=== PATIENT | male | born 1975 | race Caucasian/White ===

== ENCOUNTER → 2016-12-23 | Outpatient (CLI) | payer MEDICAID ==
[2016-12-23 09:03] LABS: Hemoglobin A1C 7.4 % (4.2-6.1)
== END | disposition home or self-care (01) ==
LOC: LABWHC1 08:05
PROVIDERS: ATTEND Internal Medicine Geriatric Medicine
DX: E11.9 Type 2 diabetes mellitus without complications (principal)
CPT/HCPCS: 36415; 83036

== ENCOUNTER 2017-02-22 23:05 | Emergency (ER) | payer MEDICAID ==
[2017-02-22 23:10] VITALS: RESP 18
[2017-02-22] MEDS ORDERED: SODIUM CHLORIDE 0.9% 1,000 ML IV ONE (23:25)
--- NOTE | 2017-02-22 23:28 | ED ---
Abdominal Pain HPI - General Chief Complaint: Abdominal Pain Stated Complaint: Side pain Time Seen by Provider: 02/22/17 23:12 Source: patient, RN notes reviewed Mode of arrival: ambulatory Limitations: no limitations - History of Present Illness Initial Comments: Patient is a 41-year-old male presents to the emergency room for evaluation of right flank pain. Patient states he has been having pain for the past 2 days. Patient states the pain has been worsening throughout the day. Patient states he went to bed and could not sleep so decided to come here to be evaluated. Patient states the pain is not any worse with movement. Patient states he is having 4 out of 10 constant pain. Patient denies nausea or vomiting. Patient denies any pain or burning during urination, trouble urinating or blood in urine. Patient denies any history of kidney stones. Patient denies history of abdominal surgeries. Patient denies constipation or diarrhea. Patient denies any discoloration of stools. Patient fevers or chills. Patient denies chest pain or shortness of breath. Patient states about a week and a half ago he was diagnosed with bronchitis. Patient states he was on prednisone for a few days. Patient states symptoms have improved since then. Patient denies any productive cough or shortness of breath. - Related Data Home Medications Medication Instructions Recorded Confirmed Albuterol Inhaler [Ventolin Hfa 1 - 2 puff INHALATION RT-Q6H PRN 02/22/17 Inhaler] sitaGLIPtin PHOS/metFORMIN HCL 1 tab PO BID 02/22/17 02/22/17 [Janumet 50-1,000 mg Tablet] Previous Rx's Medication Instructions Recorded Ibuprofen [Motrin] 600 mg PO Q6HR PRN #20 tab 02/23/17 Levofloxacin [Levaquin] 500 mg PO DAILY 7 Days 02/23/17 Allergies Allergy/AdvReac Type Severity Reaction Status Date / Time No Known Allergies Allergy Verified 02/22/17 23:20 Review of Systems ROS Statement: Those systems with pertinent positive or pertinent negative responses have been documented in the HPI. ROS Other: All systems not noted in ROS Statement are negative. Past Medical History Past Medical History: Asthma, Diabetes Mellitus History of Any Multi-Drug Resistant Organisms: None Reported Past Surgical History: Tonsillectomy Past Psychological History: No Psychological Hx Reported Smoking Status: Never smoker Past Alcohol Use History: Occasional Past Drug Use History: None Reported General Exam - General Exam Comments Initial Comments: Sitting in exam room, in no acute distress. Limitations: no limitations General appearance: alert, in no apparent distress Head exam: Present: atraumatic, normocephalic, normal inspection Eye exam: Present: normal appearance ENT exam: Present: normal exam Neck exam: Present: normal inspection Respiratory exam: Present: normal lung sounds bilaterally. Absent: respiratory distress Cardiovascular Exam: Present: regular rate, normal rhythm, normal heart sounds GI/Abdominal exam: Present: soft, normal bowel sounds. Absent: distended, tenderness, guarding, rebound, rigid Extremities exam: Present: normal inspection Back exam: Present: normal inspection. Absent: CVA tenderness (R), CVA tenderness (L) Neurological exam: Present: alert, oriented X3, CN II-XII intact, normal gait Psychiatric exam: Present: normal affect, normal mood Skin exam: Present: warm, dry, intact, normal color. Absent: rash Course Vital Signs 02/22/17 02/23/17 02/23/17 23:08 01:39 02:07 Temperature 97.8 F 97.1 F L Pulse Rate 82 74 80 Respiratory 18 18 18 Rate Blood Pressure 144/86 166/100 151/95 O2 Sat by Pulse 96 100 98 Oximetry Medical Decision Making - Medical Decision Making Patient is a 41-year-old male presents to the emergency room for evaluation of right-sided flank pain. No CVA tenderness. No abdominal tenderness. Urinalysis suspicious for a possible urinary tract infection. Urine culture pending. CT abdomen/pelvis ordered to rule out kidney stone. Possible pneumonitis found in right lower lobe. Pneumonitis could possibly be the reason patient's source of pain. Will place patient on antibiotics for pneumonia and urinary tract infection. Plan discussed with patient. Advised patient to be reevaluated by his primary care provider in 24-48 hours. Patient states he understands everything that was discussed with him. Return parameters discussed. Case discussed with Dr. Christopher. - Lab Data Result diagrams: 02/22/17 23:46 02/22/17 23:43 Lab Results 02/22/17 02/22/17 02/22/17 Range/Units 23:08 23:43 23:46 WBC 7.3 (3.8-10.6) k/uL RBC 5.67 (4.30-5.90) m/uL Hgb 16.4 (13.0-17.5) gm/dL Hct 48.1 (39.0-53.0) % MCV 84.8 (80.0-100.0) fL MCH 28.9 (25.0-35.0) pg MCHC 34.1 (31.0-37.0) g/dL RDW 13.0 (11.5-15.5) % Plt Count 186 (150-450) k/uL Neutrophils % 57 % Lymphocytes % 24 % Monocytes % 8 % Eosinophils % 7 % Basophils % 1 % Neutrophils # 4.1 (1.3-7.7) k/uL Lymphocytes # 1.8 (1.0-4.8) k/uL Monocytes # 0.6 (0-1.0) k/uL Eosinophils # 0.5 (0-0.7) k/uL Basophils # 0.1 (0-0.2) k/uL Sodium 138 (137-145) mmol/L Potassium 4.7 (3.5-5.1) mmol/L Chloride 102 (98-107) mmol/L Carbon Dioxide 26 (22-30) mmol/L Anion Gap 10 mmol/L BUN 23 H (9-20) mg/dL Creatinine 1.00 (0.66-1.25) mg/dL Est GFR (MDRD) Af Amer >60 (>60 ml/min/1.73 sqM) Est GFR (MDRD) Non-Af >60 (>60 ml/min/1.73 sqM) Glucose 249 H (74-99) mg/dL Calcium 9.5 (8.4-10.2) mg/dL Total Bilirubin 0.9 (0.2-1.3) mg/dL AST 30 (17-59) U/L ALT 62 (21-72) U/L Alkaline Phosphatase 101 (38-126) U/L Total Protein 7.3 (6.3-8.2) g/dL Albumin 3.9 (3.5-5.0) g/dL Amylase 57 (30-110) U/L Lipase 287 (23-300) U/L Urine Color Yellow Urine Appearance Cloudy (Clear) Urine pH 5.5 (5.0-8.0) Ur Specific [place] 1.022 (1.001-1.035) Urine Protein Trace H (Negative) Urine Glucose (UA) 1+ H (Negative) Urine Ketones Negative (Negative) Urine Blood Negative (Negative) Urine Nitrite Negative (Negative) Urine Bilirubin Negative (Negative) Urine Urobilinogen <2.0 (<2.0) mg/dL Ur Leukocyte Esterase Large H (Negative) Urine RBC 2 (0-5) /hpf Urine WBC 8 H (0-5) /hpf Ur Squamous Epith Cells 2 (0-4) /hpf Amorphous Sediment Rare H (None) /hpf Urine Bacteria Rare H (None) /hpf Hyaline Casts 6 H (0-2) /lpf Urine Mucus Few H (None) /hpf - Radiology Data Radiology results: report reviewed, image reviewed Disposition Clinical Impression: Pneumonia, UTI (urinary tract infection) Disposition: HOME SELF-CARE Condition: Good Instructions: Community Acquired Pneumonia (ED) Additional Instructions: Take antibiotics as directed. Please follow up with primary care provider in 1- 2 days for reevaluation. If any new symptom arises or symptoms worsen, return to ER as soon as possible. Prescriptions: Ibuprofen [Motrin] 600 mg PO Q6HR PRN #20 tab PRN Reason: Pain Levofloxacin [Levaquin] 500 mg PO DAILY 7 Days Referrals: Salvador Melo MD [Primary Care Provider] - 1-2 days Time of Disposition: 01:48
[2017-02-22 23:53] LABS: Basophils # (A) 0.1 k/uL (0-0.2); Basophils % (A) 1 %; CH 29.6; CHCM 35.1; Eosinophils # (A) 0.5 k/uL (0-0.7); Eosinophils % (A) 7 %; HCT 48.1 % (39.0-53.0); HDW 2.94; HGB 16.4 gm/dL (13.0-17.5); Luc # (Auto) 0.24; Luc % (Auto) 3; Lymphocytes # (A) 1.8 k/uL (1.0-4.8); Lymphocytes % (A) 24 %; MCH 28.9 pg (25.0-35.0); MCHC 34.1 g/dL (31.0-37.0); MCV 84.8 fL (80.0-100.0); Monocytes # (A) 0.6 k/uL (0-1.0); Monocytes % (A) 8 %; Neutrophils # (A) 4.1 k/uL (1.3-7.7); Neutrophils % (A) 57 %; RBC 5.67 m/uL (4.30-5.90); WBC 7.3 k/uL (3.8-10.6); WBC (Perox) 6.91
[2017-02-22 23:54] LABS: Amorphous Sediment,Urine Rare /hpf; Appearance,Urine Cloudy (Clear); Bacteria,Urine Rare /hpf; Bilirubin,Urine Negative (Negative); Glucose,Urine (UA) 1+ (Negative); Ketones,Urine Negative (Negative); Leukocyte Esterase,Urine Large (Negative); Mucus,Urine Few /hpf; Nitrite,Urine Negative (Negative); PH, Urine 5.5 (5.0-8.0); Particle Count 8322; Protein,Urine Trace (Negative); RBC,Urine 2 /hpf (0-5); Specific Gravity,Urine 1.022 (1.001-1.035); Squamous Epithelial Cell,Urine 2 /hpf (0-4); UA Billing (MACRO vs. MICRO) MICRO; Urobilinogen,Urine <2.0 mg/dL (<2.0); WBC,Urine 8 /hpf (0-5)
[2017-02-23 00:03] LABS: ALT 62 U/L (21-72); AST 30 U/L (17-59); Alkaline Phosphatase 101 U/L (38-126); Amylase 57 U/L (30-110); Anion Gap 10 mmol/L; Blood Urea Nitrogen 23 mg/dL (9-20); Calcium 9.5 mg/dL (8.4-10.2); Carbon Dioxide 26 mmol/L (22-30); Chloride 102 mmol/L (98-107); Glucose 249 mg/dL (74-99); Non-African American GFR(MDRD) >60 (>60 ml/min/1.73 sqM); Potassium 4.7 mmol/L (3.5-5.1); Sodium 138 mmol/L (137-145); Total Bilirubin 0.9 mg/dL (0.2-1.3); Total Protein 7.3 g/dL (6.3-8.2)
--- NOTE | 2017-02-23 00:32 | XR ---
EXAM: XR Abdomen. CLINICAL HISTORY: Pain. TECHNIQUE: Upright frontal view of the abdomen/pelvis. A total of 2 images were obtained. COMPARISON: XR dated 06/18/2016. FINDINGS: Intraperitoneal space: No evidence of free intraperitoneal air. Gastrointestinal tract: Nonspecific bowel gas pattern. No significant dilation of bowel loops to suggest bowel obstruction. Bones/joints: Unremarkable osseous structures. IMPRESSION: Nonspecific bowel gas pattern without radiographic evidence of bowel obstruction or free air.
[2017-02-23] MEDS ORDERED: ACETAMINOPHEN IV (For NPO) 1,000 MG in EMPTY BAG 1 BAG IVPB STA (00:40)
--- NOTE | 2017-02-23 01:41 | CT ---
EXAM: CT Abdomen and Pelvis Without Intravenous Contrast CLINICAL HISTORY: Right upper quadrant pain. TECHNIQUE: Axial computed tomography images of the abdomen and pelvis without intravenous contrast. Coronal and sagittal reformatted images were created and reviewed. DOSE INFORMATION: CTDI is 9.90 mGy and DLP is 527.10 mGy-cm. This CT exam was performed using one or more of the following dose reduction techniques: automated exposure control, adjustment of the mA and/or kV according to patient size, and/or use of iterative reconstruction technique. COMPARISON: No relevant prior studies available. FINDINGS: Lower thorax: Mild opacities in the RLL at the lung base. Visualized lower chest otherwise unremarkable. ABDOMEN: Liver: Fatty infiltration of the liver. Liver measures 18.8 cm in craniocaudal dimension. Gallbladder and bile ducts: Contracted gallbladder. No radiopaque gallstones. No biliary ductal dilation. Pancreas: No ductal dilation. No adjacent inflammatory changes. Spleen: Unremarkable. No splenomegaly. Adrenals: Unremarkable. No mass. Kidneys and ureters: Unremarkable. No obstructing calculi. No hydronephrosis. Stomach and bowel: Colonic diverticula without evidence of acute diverticulitis. No bowel obstruction. No significant bowel wall thickening. Appendix: No findings to suggest acute appendicitis. PELVIS: Bladder: Unremarkable. No calculi or wall thickening. Reproductive: Unremarkable as visualized. ABDOMEN and PELVIS: Intraperitoneal space: No free air. No significant fluid collection. Bones/joints: Mild degenerative disc disease with small calcified disc bulge at L5-S1. No acute fracture. Soft tissues: Tiny fat-containing umbilical hernia. No associated inflammatory changes. Vasculature: Unremarkable. No aortic aneurysm. Lymph nodes: Unremarkable. No enlarged lymph nodes. IMPRESSION: 1. Mild opacity in the right lower lobe at the lung base. Findings may represent mild bronchiolitis/pneumonitis versus atelectasis. Correlate clinically. 2. Mildly enlarged fatty liver. 3. Colonic diverticula without evidence of acute diverticulitis.
[2017-02-23] MEDS ORDERED: IBUPROFEN 600 MG TAB PO STA (01:56)
[2017-02-23 02:07] VITALS: BP 151/95; PULSE 80; TEMP 97.1
== END 2017-02-23 02:07 | disposition home or self-care (01) ==
LOC: EC 23:05
DX: N39.0 Urinary tract infection, site not specified (principal); J18.9 Pneumonia, unspecified organism; E11.9 Type 2 diabetes mellitus without complications; Z79.4 Long term (current) use of insulin
CPT/HCPCS: 99284; 96374; 96361; 36415; 80053; 82150; 83690; 85025; 81001; 87491; 87591; 87086; 74000; 74176; J0131

== ENCOUNTER → 2020-09-05 | Outpatient (CLI) | payer MEDICAID | END | disposition home or self-care (01) | LOC: LABWHC1 13:08 | PROVIDERS: ATTEND Nurse Practitioner Gerontology | DX: Z20.828 Contact with and (suspected) exposure to other viral communicable diseases (principal) | CPT/HCPCS: U0003; C9803 ==

== ENCOUNTER → 2021-10-09 | Outpatient (CLI) | payer MEDICAID ==
[2021-10-09 14:25] LABS: Basophils # (A) 0.01 X 10*3/uL (0.00-0.10); Basophils % (A) 0.1 %; Eosinophils # (A) 0.21 X 10*3/uL (0.04-0.35); Eosinophils % (A) 2.6 %; HCT 45.2 % (39.6-50.0); HGB 15.3 g/dL (13.0-17.0); Lymphocytes # (A) 1.85 X 10*3/uL (0.90-5.00); Lymphocytes % (A) 23.3 %; MCHC 33.8 g/dL (32.0-37.0); MCV 85.6 fL (80.0-97.0); Mean Platelet Volume 11.8 fL (9.5-12.2); Monocytes # (A) 0.73 X 10*3/uL (0.20-1.00); Monocytes % (A) 9.2 %; Neutrophils # (A) 5.13 X 10*3/uL (1.80-7.70); Neutrophils % (A) 64.5 %; Platelet Count 238 X 10*3/uL (140-440); RBC 5.28 X 10*6/uL (4.40-5.60); RDW 12.3 % (11.5-14.5); WBC 7.95 X 10*3/uL (4.50-10.00)
[2021-10-09 16:11] LABS: ALT 25 U/L (10-49); AST 15 U/L (14-35); African American GFR (CKD) 109.5 (60.0-200.0); Albumin 4.3 g/dL (3.8-4.9); Albumin/Globulin Ratio 1.62 (1.60-3.17); Alkaline Phosphatase 96 U/L (41-126); BUN/Creat Ratio 22.43 Ratio (12.00-20.00); Blood Urea Nitrogen 21.4 mg/dL (9.0-27.0); Calcium 9.1 mg/dL (8.7-10.3); Carbon Dioxide 23.4 mmol/L (20.0-27.5); Chloride 99 mmol/L (96-109); Chol/HDL Ratio 3.71 Ratio; Globulin 2.6 g/dL (1.6-3.3); Glucose 259 mg/dL (70-110); Non-African American GFR(CKD) 94.5 (60.0-200.0); Potassium 4.7 mmol/L (3.5-5.5); Sodium 136 mmol/L (135-145); Total Protein 6.9 g/dL (6.2-8.2); VLDL Calculation 13.64 mg/dL (5.00-40.00)
== END | disposition home or self-care (01) ==
LOC: LABWHC1 10:12
PROVIDERS: ATTEND Nurse Practitioner Gerontology
DX: E11.65 Type 2 diabetes mellitus with hyperglycemia (principal); E78.2 Mixed hyperlipidemia
CPT/HCPCS: 36415; 80053; 80061; 83036; 84443; 85025

== ENCOUNTER → 2022-01-09 | Outpatient (CLI) | payer MEDICAID ==
[2022-01-09 12:00] LABS: African American GFR (CKD) 103.4 (60.0-200.0); Albumin 4.3 g/dL (3.8-4.9); Albumin/Globulin Ratio 1.54 (1.60-3.17); Anion Gap 10.7 mmol/L (10.00-18.00); BUN/Creat Ratio 21.4 Ratio (12.00-20.00); Blood Urea Nitrogen 21.4 mg/dL (9.0-27.0); Calcium 9.4 mg/dL (8.7-10.3); Carbon Dioxide 24.3 mmol/L (20.0-27.5); Globulin 2.8 g/dL (1.6-3.3); Non-African American GFR(CKD) 89.2 (60.0-200.0); Potassium 4.3 mmol/L (3.5-5.5); Total Bilirubin 0.4 mg/dL (0.30-1.20); Total Protein 7.1 g/dL (6.2-8.2)
== END | disposition home or self-care (01) ==
LOC: LABWHC1 07:25
PROVIDERS: ATTEND Internal Medicine Geriatric Medicine
DX: E11.65 Type 2 diabetes mellitus with hyperglycemia (principal)
CPT/HCPCS: 36415; 80053; 83036

== ENCOUNTER → 2022-04-15 | Outpatient (CLI) | payer MEDICAID ==
[2022-04-15 15:44] LABS: ALT 17 U/L (10-49); AST 21 U/L (14-35); African American GFR (CKD) 92.2 (60.0-200.0); Albumin 4.4 g/dL (3.8-4.9); Albumin/Globulin Ratio 1.47 (1.60-3.17); Alkaline Phosphatase 64 U/L (41-126); BUN/Creat Ratio 22.73 Ratio (12.00-20.00); Calcium 9.3 mg/dL (8.7-10.3); Carbon Dioxide 27.4 mmol/L (20.0-27.5); Chloride 101 mmol/L (96-109); Chol/HDL Ratio 3.35 Ratio; Glucose 105 mg/dL (70-110); LDL Cholesterol,Calculated 80.4 mg/dL (0.0-131.0); Non-African American GFR(CKD) 79.5 (60.0-200.0); Potassium 4.2 mmol/L (3.5-5.5); Sodium 145 mmol/L (135-145); Total Protein 7.4 g/dL (6.2-8.2); VLDL Calculation 14.98 mg/dL (5.00-40.00)
[2022-04-15 15:45] LABS: Basophils # (A) 0.01 X 10*3/uL (0.00-0.10); Basophils % (A) 0.1 %; Eosinophils # (A) 0.25 X 10*3/uL (0.04-0.35); Eosinophils % (A) 3.5 %; HCT 49.7 % (39.6-50.0); HGB 15.8 g/dL (13.0-17.0); Immature Grans, Automated 0.3 %; Lymphocytes # (A) 1.81 X 10*3/uL (0.90-5.00); Lymphocytes % (A) 25.4 %; MCH 28.7 pg (27.0-32.0); MCHC 31.8 g/dL (32.0-37.0); MCV 90.4 fL (80.0-97.0); Mean Platelet Volume 11.1 fL (9.5-12.2); Monocytes # (A) 0.64 X 10*3/uL (0.20-1.00); NRBC Per 100 WBC 0 /100 WBCS (0.0-0.0); Neutrophils # (A) 4.39 X 10*3/uL (1.80-7.70); Neutrophils % (A) 61.7 %; Platelet Count 230 X 10*3/uL (140-440); RDW 13.2 % (11.5-14.5); WBC 7.12 X 10*3/uL (4.50-10.00)
== END | disposition home or self-care (01) ==
LOC: LABWHC1 07:38
PROVIDERS: ATTEND Nurse Practitioner Gerontology
DX: E11.65 Type 2 diabetes mellitus with hyperglycemia (principal); E78.2 Mixed hyperlipidemia; F41.9 Anxiety disorder, unspecified
CPT/HCPCS: 36415; 80053; 80061; 83036; 84443; 85025

== ENCOUNTER → 2022-08-31 | Outpatient (CLI) | payer MEDICAID ==
[2022-08-31 23:10] LABS: ALT 22 U/L (10-49); AST 32 U/L (14-35); Albumin 4.2 g/dL (3.8-4.9); Albumin/Globulin Ratio 1.45 (1.60-3.17); Alkaline Phosphatase 59 U/L (41-126); BUN/Creat Ratio 20.79 Ratio (12.00-20.00); Blood Urea Nitrogen 19.5 mg/dL (9.0-27.0); Calcium 8.8 mg/dL (8.7-10.3); Carbon Dioxide 24.9 mmol/L (20.0-27.5); Chloride 101 mmol/L (96-109); Chol/HDL Ratio 3.75 Ratio; Globulin 2.9 g/dL (1.6-3.3); Glucose 106 mg/dL (70-110); LDL Cholesterol,Calculated 94.9 mg/dL (0.0-131.0); Non-African American GFR(CKD) 95.7 (60.0-200.0); Potassium 3.8 mmol/L (3.5-5.5); Sodium 137 mmol/L (135-145); Total Protein 7.1 g/dL (6.2-8.2)
[2022-08-31 23:11] LABS: Basophils # (A) 0.02 X 10*3/uL (0.00-0.10); Basophils % (A) 0.2 %; Eosinophils # (A) 0.77 X 10*3/uL (0.04-0.35); Eosinophils % (A) 9.4 %; HCT 47.4 % (39.6-50.0); HGB 15.7 g/dL (13.0-17.0); Immature Grans, Automated 0.2 %; Lymphocytes # (A) 2.53 X 10*3/uL (0.90-5.00); Lymphocytes % (A) 30.9 %; MCH 29.5 pg (27.0-32.0); MCHC 33.1 g/dL (32.0-37.0); MCV 88.9 fL (80.0-97.0); Mean Platelet Volume 10.9 fL (9.5-12.2); Monocytes # (A) 0.71 X 10*3/uL (0.20-1.00); Monocytes % (A) 8.7 %; NRBC Per 100 WBC 0 /100 WBCS (0.0-0.0); Neutrophils # (A) 4.15 X 10*3/uL (1.80-7.70); Neutrophils % (A) 50.6 %; Platelet Count 192 X 10*3/uL (140-440); RBC 5.33 X 10*6/uL (4.40-5.60); RDW 13.2 % (11.5-14.5)
== END | disposition home or self-care (01) ==
LOC: LABWHC1 14:24
PROVIDERS: ATTEND Internal Medicine Geriatric Medicine
DX: R79.9 Abnormal finding of blood chemistry, unspecified (principal); E78.2 Mixed hyperlipidemia; E11.65 Type 2 diabetes mellitus with hyperglycemia
CPT/HCPCS: 36415; 80053; 80061; 83036; 84439; 84443; 85025